=== PATIENT | male | born 1965 | race Asian ===

== ENCOUNTER 2017-03-03 07:27 | Day surgery (SDC) | payer OTHER ==
[~2017-03-03] VITALS: Ht 165.1 cm; Wt 75.3 kg
[2017-03-03 08:04] VITALS: BP 123/94
[2017-03-03 12:59] VITALS: BP 117/78
== END 2017-03-03 11:00 | disposition home or self-care (01) ==
LOC: DS 07:27 → GI 09:00 → OR 10:30 → GI 10:30 → DS 11:00
PROVIDERS: Internal Medicine Gastroenterology
PROC: 0DJD8ZZ Inspection of Lower Intestinal Tract, Via Natural or Artificial Opening Endoscopic (ICD-10-PCS; principal; 2017-03-03 09:00)
DX: Z12.11 Encounter for screening for malignant neoplasm of colon (principal)
CPT/HCPCS: 45378; J1200; J1610; J2250; J2310; J3010; J3490